=== PATIENT | female | born 1940 | race Caucasian/White ===

== ENCOUNTER 2019-01-25 08:53 | Inpatient (IN) ==
[2019-01-25] MEDS ORDERED: 0.9 % Sodium Chloride 1,000 ML IVC ONE (09:04)
[2019-01-25] MEDS ORDERED: Ipratropium/Albuterol Neb 3 ML IH ONE (09:11)
[2019-01-25] MEDS ORDERED: cefTRIAXone 2,000 MG in Water for inj. (sterile) 20 ML IVP ONE (09:11)
[2019-01-25] MEDS ORDERED: Azithromycin 500 MG in 0.9 % Sodium Chloride 250 ML IVPB ONE (09:11)
[2019-01-25] MEDS ORDERED: methylPREDNISolone 125 MG/2 ML VIAL IVP ONE (09:12)
[2019-01-25 09:41] LABS: Basophils # 0.1 K/mcL (0.0-0.2); Basophils % 0.4 %; Eosinophils # 0.2 K/mcL (0.0-0.6); Eosinophils % 0.8 %; Hematocrit 40.1 % (35.3-44.9); Hemoglobin 13.3 g/dL (11.5-15.4); Immature Granulocytes % 1.3 % (0-4); Lymphocytes # 2.3 K/mcL (0.6-4.6); Lymphocytes % 9.9 %; Mean Corpuscular HGB Conc 33.2 g/dL (31.6-35.5); Mean Corpuscular Hemoglobin 31.5 pg (28.0-33.3); Mean Platelet Volume 9.5 fL (9.4-12.4); Monocytes # 1.7 K/mcL (0.0-1.3); Monocytes % 7.4 %; Neutrophils # 18.7 K/mcL (1.6-8.9); Platelet Count 358 K/mcL (140-400); Red Blood Count 4.22 M/mcL (3.82-4.97); Red Cell Distribution Width 12.4 % (11.5-14.5); Segmented Neutrophils % 80.2 %; White Blood Count 23.3 K/mcL (4.3-11.1)
[2019-01-25 10:02] LABS: BUN/Creatinine Ratio 13 (6-26); Blood Urea Nitrogen 9 mg/dL (8-23); Calcium 10.4 mg/dL (8.6-10.3); Carbon Dioxide 27 mEq/L (23-29); Chloride 91 mEq/L (98-107); Glucose 189 mg/dL (70-105); Osmolality,Calculated 272 (280-300); Potassium 3.3 mEq/L (3.5-5.1); Sodium 129 mEq/L (136-145); Troponin I < 0.03 ng/mL (< 0.04); eGFR For African Americans > 60 (> 60); eGFR For Non-African Americans > 60 (> 60)
[2019-01-25] MEDS ORDERED: Potassium Chloride Elixir 20 MEQ/15 ML UDC PO ONE (10:38)
[2019-01-25 11:25] LABS: VBG HCO3 26 mEq/L (21-27); VBG PCO2 60 mmHg (41-51); VBG PH 7.25 pH Units (7.32-7.42); VBG PO2 45 mmHg (25-50)
[2019-01-25] MEDS ORDERED: Naloxone 0.4 MG/ML INJ IVP PRN (12:06)
[2019-01-25] MEDS ORDERED: Acetaminophen 325 MG TABLET PO PRN (12:06)
[2019-01-25] MEDS ORDERED: Ondansetron 4 MG/2 ML VIAL IVP PRN (12:06)
[2019-01-25] MEDS ORDERED: Albuterol 2.5 MG/3 ML NEBULIZER IH PRN (12:08)
[2019-01-25 12:55] LABS: Magnesium 1.7 mg/dL (1.6-2.6); Potassium 3.7 mEq/L (3.5-5.1)
[2019-01-25 14:56] LABS: Adenovirus Not Detected (Not Detect); Bordetella Pertussis Not Detected (Not Detect); Chlamydophila pneumoniae Not Detected (Not Detect); Coronavirus 229E Not Detected (Not Detect); Coronavirus HKU1 Not Detected (Not Detect); Coronavirus NL63 Not Detected (Not Detect); Coronavirus OC43 Not Detected (Not Detect); Human Metapneumovirus Not Detected (Not Detect); Human Rhinovirus/Enterovirus Not Detected (Not Detect); Influenza A Subtype 2009 H1 Not Detected (Not Detect); Influenza A Untypeable Not Detected (Not Detect); Influenza B Not Detected (Not Detect); Mycoplasma pneumoniae Not Detected (Not Detect); Parainfluenza Virus 1 Not Detected (Not Detect); Parainfluenza Virus 2 Not Detected (Not Detect); Parainfluenza Virus 3 Not Detected (Not Detect); Parainfluenza Virus 4 Not Detected (Not Detect); Respiratory Syncytial Virus Not Detected (Not Detect)
[2019-01-25 15:09] LABS: Bilirubin,Urine Negative (Negative); Blood,Urine Negative (Negative); Clarity,Urine Clear (Clear); Color,Urine Yellow (Yellow); Glucose,Urine (UA) 250 mg/dL (Normal); Ketones,Urine Negative (Negative); Leukocyte Esterase,Urine Trace (Negative); Nitrite,Urine Negative (Negative); PH,Urine 6.5 pH Units (5.0-8.0); Protein,Urine Negative (Neg-Trace); Specific Gravity,Urine 1.008 (1.010-1.025); Urobilinogen,Urine Normal (Normal)
[2019-01-25 15:11] LABS: Bacteria,Urine None Seen per hpf (None-Few); Hyaline Casts,Urine None Seen per lpf (None-Few); RBC,Urine 0-3 per hpf (0-3); Squamous Epithelial Cell,Urine Moderate per lpf (None-Few); WBC,Urine 0-3 per hpf (0-3)
[2019-01-25 15:41] LABS: VBG HCO3 25 mEq/L (21-27); VBG PCO2 46 mmHg (41-51); VBG PH 7.34 pH Units (7.32-7.42); VBG PO2 62 mmHg (25-50)
[2019-01-25] MEDS: Ipratropium/Albuterol Neb 3 ML IH SCH ×2 (15:54→22:26)
[2019-01-25] MEDS: hydrALAZINE 25 MG TABLET PO SCH (17:09)
[2019-01-25] MEDS: methylPREDNISolone 125 MG/2 ML VIAL IVP SCH ×2 (17:09→23:50)
[2019-01-25] MEDS: *HR* Heparin 5,000 UNIT/ML VIAL SQ SCH (17:10)
[2019-01-26 01:35] LABS: Basophils % 0.1 %; Hematocrit 34.7 % (35.3-44.9); Hemoglobin 11.9 g/dL (11.5-15.4); Immature Granulocytes % 1.2 % (0-4); Lymphocytes # 1.2 K/mcL (0.6-4.6); Lymphocytes % 6.8 %; Mean Corpuscular HGB Conc 34.3 g/dL (31.6-35.5); Mean Corpuscular Hemoglobin 31.6 pg (28.0-33.3); Mean Platelet Volume 10.1 fL (9.4-12.4); Monocytes # 0.4 K/mcL (0.0-1.3); Monocytes % 2.2 %; Neutrophils # 15.8 K/mcL (1.6-8.9); Platelet Count 360 K/mcL (140-400); Red Blood Count 3.77 M/mcL (3.82-4.97); Red Cell Distribution Width 12.4 % (11.5-14.5); Segmented Neutrophils % 89.7 %; White Blood Count 17.6 K/mcL (4.3-11.1)
[2019-01-26 01:54] LABS: BUN/Creatinine Ratio 18 (6-26); Blood Urea Nitrogen 12 mg/dL (8-23); Calcium 9.7 mg/dL (8.6-10.3); Carbon Dioxide 24 mEq/L (23-29); Chloride 96 mEq/L (98-107); Glucose 362 mg/dL (70-105); Osmolality,Calculated 284 (280-300); Potassium 3.8 mEq/L (3.5-5.1); Sodium 130 mEq/L (136-145); eGFR For African Americans > 60 (> 60); eGFR For Non-African Americans > 60 (> 60)
[2019-01-26] MEDS: Ipratropium/Albuterol Neb 3 ML IH SCH ×4 (03:57→22:18)
[2019-01-26] MEDS: *HR* Heparin 5,000 UNIT/ML VIAL SQ SCH ×2 (04:35→17:08)
[2019-01-26] MEDS ORDERED: Dextrose Gel 15 GM/37.5 ML TUBE PO PRN ×2 (08:11)
[2019-01-26] MEDS ORDERED: *HR* Dextrose 50 % in Water (Syg) 50 ML SYRINGE IVP PRN (08:11)
[2019-01-26] MEDS ORDERED: D5% in Water 1,000 ML IVC PRN (08:11)
[2019-01-26] MEDS: methylPREDNISolone 125 MG/2 ML VIAL IVP SCH (08:33)
[2019-01-26] MEDS: Azithromycin 500 MG in 0.9 % Sodium Chloride 250 ML IVPB SCH (08:34)
[2019-01-26] MEDS ORDERED: cefTRIAXone 1,000 MG in Water for inj. (sterile) 10 ML IVP SCH (09:00)
[2019-01-26] MEDS ORDERED: Metoprolol XL (24 HR) Succ 50 MG TAB.ER.24H PO SCH (09:00)
[2019-01-26] MEDS: Lisinopril 20 MG TABLET PO SCH ×2 (10:23→21:35)
[2019-01-26 10:33] LABS: Estimated Average Glucose 192 mg/dl
[2019-01-26] MEDS: Insulin LISPRO 300 UNITS/3 ML VIAL SQ SCH ×3 (12:56→20:03)
[2019-01-26] MEDS: MethylPREDNISolone 40 MG/ML VIAL IVP SCH (17:08)
[2019-01-26] MEDS: hydrALAZINE 25 MG TABLET PO SCH (17:08)
[2019-01-27 01:55] LABS: Basophils # 0.1 K/mcL (0.0-0.2); Basophils % 0.4 %; Hematocrit 34.4 % (35.3-44.9); Hemoglobin 11.8 g/dL (11.5-15.4); Immature Platelets 3.3 % (1.1-6.1); Lymphocytes # 1.2 K/mcL (0.6-4.6); Lymphocytes % 6.1 %; Mean Corpuscular HGB Conc 34.3 g/dL (31.6-35.5); Mean Corpuscular Hemoglobin 31.9 pg (28.0-33.3); Mean Platelet Volume 9.9 fL (9.4-12.4); Monocytes % 5.2 %; Platelet Count 333 K/mcL (140-400); Red Cell Distribution Width 12.5 % (11.5-14.5); Segmented Neutrophils % 85.3 %; White Blood Count 19.9 K/mcL (4.3-11.1)
[2019-01-27 02:19] LABS: BUN/Creatinine Ratio 32 (6-26); Blood Urea Nitrogen 24 mg/dL (8-23); Calcium 10.1 mg/dL (8.6-10.3); Carbon Dioxide 26 mEq/L (23-29); Chloride 98 mEq/L (98-107); Glucose 317 mg/dL (70-105); Osmolality,Calculated 292 (280-300); Potassium 3.8 mEq/L (3.5-5.1); Sodium 133 mEq/L (136-145); eGFR For African Americans > 60 (> 60); eGFR For Non-African Americans > 60 (> 60)
[2019-01-27] MEDS: Ipratropium/Albuterol Neb 3 ML IH SCH ×4 (04:11→23:38)
[2019-01-27] MEDS: *HR* Heparin 5,000 UNIT/ML VIAL SQ SCH ×2 (05:16→17:10)
[2019-01-27] MEDS: MethylPREDNISolone 40 MG/ML VIAL IVP SCH (05:53)
[2019-01-27] MEDS: Insulin LISPRO 300 UNITS/3 ML VIAL SQ SCH ×4 (09:00→21:51)
[2019-01-27] MEDS: Lisinopril 20 MG TABLET PO SCH ×2 (11:19→21:51)
[2019-01-27] MEDS: Metoprolol XL (24 HR) Succ 50 MG TAB.ER.24H PO SCH (11:20)
[2019-01-27] MEDS: Azithromycin 500 MG in 0.9 % Sodium Chloride 250 ML IVPB SCH (11:21)
[2019-01-27] MEDS: hydrALAZINE 25 MG TABLET PO SCH (17:10)
[2019-01-27] MEDS ORDERED: Insulin DETEMIR 100 UNIT/ML X5UNITS SQ SCH (21:00)
[2019-01-28 01:35] LABS: Hematocrit 41.5 % (35.3-44.9); Mean Corpuscular HGB Conc 32.8 g/dL (31.6-35.5); Mean Corpuscular Hemoglobin 31.1 pg (28.0-33.3); Mean Platelet Volume 9.4 fL (9.4-12.4); Platelet Count 411 K/mcL (140-400); Red Blood Count 4.37 M/mcL (3.82-4.97); Red Cell Distribution Width 12.5 % (11.5-14.5); White Blood Count 21.3 K/mcL (4.3-11.1)
[2019-01-28 01:38] LABS: Hemoglobin 13.6 g/dL (11.5-15.4)
[2019-01-28 01:54] LABS: BUN/Creatinine Ratio 31 (6-26); Blood Urea Nitrogen 28 mg/dL (8-23); Calcium 10.7 mg/dL (8.6-10.3); Carbon Dioxide 25 mEq/L (23-29); Chloride 99 mEq/L (98-107); Glucose 85 mg/dL (70-105); Osmolality,Calculated 285 (280-300); Potassium 3.6 mEq/L (3.5-5.1); Sodium 135 mEq/L (136-145); eGFR For African Americans > 60 (> 60); eGFR For Non-African Americans > 60 (> 60)
[2019-01-28 02:13] LABS: Lymphocytes # 3.8 K/mcL (0.6-4.6); Monocytes # 0.4 K/mcL (0.0-1.3)
[2019-01-28 02:14] LABS: Platelet Estimate Normal (Normal)
[2019-01-28] MEDS: Ipratropium/Albuterol Neb 3 ML IH SCH ×2 (03:53→09:59)
[2019-01-28] MEDS: *HR* Heparin 5,000 UNIT/ML VIAL SQ SCH (04:23)
[2019-01-28] MEDS: Insulin LISPRO 300 UNITS/3 ML VIAL SQ SCH ×2 (08:00→11:22)
[2019-01-28] MEDS: Azithromycin 500 MG in 0.9 % Sodium Chloride 250 ML IVPB SCH (08:14)
[2019-01-28] MEDS: Metoprolol XL (24 HR) Succ 50 MG TAB.ER.24H PO SCH (08:14)
[2019-01-28] MEDS: Lisinopril 20 MG TABLET PO SCH (08:14)
[2019-01-28] MEDS ORDERED: predniSONE 20 MG TABLET PO SCH (09:00)
[2019-01-28] MEDS ORDERED: hydrALAZINE 25 MG TABLET PO SCH (09:00)
[2019-01-28 14:32] VITALS: BP 151/81
[2019-01-29] MEDS ORDERED: Azithromycin 250 MG TABLET PO SCH (08:30)
== END 2019-01-28 15:29 | disposition home health service (06) | DRG 190 ==
LOC: EMEROOARM 08:53 → 3BNU 08:53
PROVIDERS: ADMIT Internal Medicine; ATTEND Internal Medicine

== ENCOUNTER 2021-06-10 22:27 | Inpatient (IN) ==
[2021-06-10] MEDS ORDERED: 0.9 % Sodium Chloride 1,000 ML IVC ONE (22:54)
[2021-06-10] MEDS ORDERED: cefTRIAXone 1,000 MG in 0.9 % Sodium Chloride Mini Bag 100 ML IVPB ONE (22:56)
[2021-06-10] MEDS ORDERED: Isovue-370 500 ML BOTTLE IVP ONE (22:57)
[2021-06-10 23:09] LABS: Basophils % 0.1 %
[2021-06-10 23:11] LABS: Hematocrit 52.5 % (35.3-44.9); Hemoglobin 16.4 g/dL (11.5-15.4); Immature Granulocytes % 3.4 % (0-4); Lymphocytes % 6.6 %; Mean Corpuscular HGB Conc 31.2 g/dL (31.6-35.5); Mean Corpuscular Hemoglobin 29.9 pg (28.0-33.3); Mean Corpuscular Volume 95.6 fL (83.0-100.0); Mean Platelet Volume 11.8 fL (9.4-12.4); Monocytes # 1.3 K/mcL (0.0-1.3); Monocytes % 4.1 %; Neutrophils # 26.5 K/mcL (1.6-8.9); Nucleated Red Blood Cells 0.1 /100 WBC (0); Platelet Count 374 K/mcL (140-400); Red Blood Count 5.49 M/mcL (3.82-4.97); Red Cell Distribution Width 13.8 % (11.5-14.5); Segmented Neutrophils % 85.8 %
[2021-06-10 23:16] LABS: INR 1.3; Prothrombin Time 14.5 Seconds (9.4-12.1)
[2021-06-10 23:19] LABS: Activated Partial Thrombo Time 24.1 Seconds (26.0-36.0)
[2021-06-10 23:27] LABS: White Blood Count 30.9 K/mcL (4.3-11.1)
[2021-06-10 23:33] LABS: Albumin 3.2 g/dL (3.5-5.7); Albumin/Globulin Ratio 0.7 (1.1-2.2); Bilirubin,Direct 0.1 mg/dL (0.0-0.2); Bilirubin,Indirect 0.4 mg/dL (0.0-1.0); Bilirubin,Total 0.5 mg/dL (0.3-1.0); Calcium 10.9 mg/dL (8.6-10.3); Globulin 4.6 g/dL (2.4-3.5); Magnesium 3.3 mg/dL (1.6-2.6); Phosphorous 7.4 mg/dL (2.7-4.5); Total Protein 7.8 g/dL (6.4-8.9); Troponin I 0.06 ng/mL (< 0.04)
[2021-06-10 23:36] LABS: Large Platelets Present (Not Present)
[2021-06-10 23:37] LABS: Reactive Lymphocytes Present (Not Present); Toxic Granulation Present (Not Present)
[2021-06-10 23:38] LABS: Smudge Cells Present (Not Present)
[2021-06-10] MEDS ORDERED: 0.9 % Sodium Chloride 1,000 ML IV ONE (23:54)
[2021-06-11 00:08] LABS: VBG HCO3 19 mEq/L (21-27); VBG PCO2 40 mmHg (41-51); VBG PH 7.29 pH Units (7.32-7.42); VBG PO2 40 mmHg (25-50)
[2021-06-11 01:02] LABS: Adenovirus Not Detected (Not Detect); Coronavirus 229E Not Detected (Not Detect); Coronavirus HKU1 Not Detected (Not Detect); Coronavirus NL63 Not Detected (Not Detect); Coronavirus OC43 Not Detected (Not Detect); Human Metapneumovirus Not Detected (Not Detect); Human Rhinovirus/Enterovirus Not Detected (Not Detect); Influenza A Subtype 2009 H1 Not Detected (Not Detect); Influenza B Not Detected (Not Detect); Parainfluenza Virus 1 Not Detected (Not Detect); Parainfluenza Virus 2 Not Detected (Not Detect); Parainfluenza Virus 3 Not Detected (Not Detect); SARS-CoV-2 Not Detected (Not Detect)
[2021-06-11 01:03] LABS: Bordetella Pertussis Not Detected (Not Detect); Chlamydophila pneumoniae Not Detected (Not Detect); Mycoplasma pneumoniae Not Detected (Not Detect); Parainfluenza Virus 4 Not Detected (Not Detect); Respiratory Syncytial Virus Not Detected (Not Detect)
[2021-06-11 01:29] LABS: Bilirubin,Urine Negative (Negative); Blood,Urine Large (Negative); Clarity,Urine Turbid (Clear); Color,Urine Yellow (Yellow); Glucose,Urine (UA) >=1000 mg/dL (Normal); Hyaline Casts,Urine Many per lpf (None Seen); Ketones,Urine Negative (Negative); Leukocyte Esterase,Urine Negative (Negative); Mucus,Urine Moderate per lpf (None-Few); Nitrite,Urine Negative (Negative); PH,Urine 5.5 pH Units (5.0-8.0); Protein,Urine 50 mg/dL (Neg-Trace); RBC,Urine 0-3 per hpf (0-3); Specific Gravity,Urine 1.018 (1.010-1.025); Squamous Epithelial Cell,Urine Few per hpf (None-Few); Urobilinogen,Urine Normal (Normal)
[2021-06-11] MEDS ORDERED: 0.9 % Sodium Chloride 1,000 ML IV ONE (01:31)
[2021-06-11] MEDS ORDERED: MetroNIDAZOLE 500 MG/100 ML 500 MG/100 ML BAG IVPB ONE (01:34)
[2021-06-11 02:44] LABS: Calcium 9.2 mg/dL (8.6-10.3); Potassium 4.6 mEq/L (3.5-5.1)
[2021-06-11] MEDS ORDERED: Insulin Regular, Human 100 UNIT/ML IV ONE (03:43)
[2021-06-11] MEDS ORDERED: Insulin LISPRO 300 UNITS/3 ML VIAL SUBQ PRN ×3 (03:43→03:59)
[2021-06-11] MEDS ORDERED: D5% in 0.45% NACL 1,000 ML IVC PRN (03:59)
[2021-06-11] MEDS ORDERED: *HR* Dextrose 50 % in Water (Syg) 50 ML SYRINGE IVP PRN (03:59)
[2021-06-11] MEDS ORDERED: D5% in 0.45% NACL w KCl 20 MEQ/1,000 ML MLS IVC PRN (03:59)
[2021-06-11] MEDS: 0.9 % Sodium Chloride 1,000 ML IVC SCH ×12 (04:19→23:13)
[2021-06-11] MEDS: 0.45 % Sodium Chloride w/KCl 20 MEQ/1,000 ML MLS IVC SCH ×12 (04:20→23:27)
[2021-06-11] MEDS: 0.9 % Sodium Chloride w KCl 20 MEQ/1,000 ML MLS IVC SCH ×12 (04:20→23:27)
[2021-06-11 06:02] LABS: VBG HCO3 17 mEq/L (21-27); VBG PCO2 40 mmHg (41-51); VBG PH 7.23 pH Units (7.32-7.42); VBG PO2 59 mmHg (25-50)
[2021-06-11 06:26] LABS: BUN/Creatinine Ratio 28 (6-26); Blood Urea Nitrogen 75 mg/dL (8-23); Calcium 8.7 mg/dL (8.6-10.3); Carbon Dioxide 20 mEq/L (23-29); Chloride 117 mEq/L (98-107); Glucose 406 mg/dL (70-105); Osmolality,Calculated 341 (280-300); Potassium 3.8 mEq/L (3.5-5.1); Salicylate < 2.5 mg/dL (15.0-30.0); Sodium 146 mEq/L (136-145); eGFR For African Americans 21 (> 60); eGFR For Non-African Americans 17 (> 60)
[2021-06-11 09:20] LABS: Estimated Average Glucose 243 mg/dl; Hemoglobin A1C 10.1 %
[2021-06-11 10:27] LABS: Eosinophils % 0.3 %; Lymphocytes % 6.9 %; Nucleated Red Blood Cells 0.1 /100 WBC (0); Red Cell Distribution Width 13.6 % (11.5-14.5)
[2021-06-11 10:29] LABS: Basophils # 0.2 K/mcL (0.0-0.2); Basophils % 0.5 %; Eosinophils # 0.1 K/mcL (0.0-0.6); Hematocrit 44.7 % (35.3-44.9); Immature Granulocytes % 3.2 % (0-4); Mean Corpuscular HGB Conc 31.3 g/dL (31.6-35.5); Mean Corpuscular Hemoglobin 30.3 pg (28.0-33.3); Mean Corpuscular Volume 96.8 fL (83.0-100.0); Mean Platelet Volume 11.2 fL (9.4-12.4); Monocytes # 0.8 K/mcL (0.0-1.3); Monocytes % 1.9 %; Neutrophils # 37.3 K/mcL (1.6-8.9); Platelet Count 260 K/mcL (140-400); Red Blood Count 4.62 M/mcL (3.82-4.97); Segmented Neutrophils % 87.2 %
[2021-06-11] MEDS ORDERED: Aspirin Enteric Coated 81 MG Tablet PO SCH (10:30)
[2021-06-11] MEDS ORDERED: lisinopriL 20 MG TABLET PO SCH (10:30)
[2021-06-11] MEDS ORDERED: hydrALAZINE 25 MG TABLET PO SCH ×2 (10:30→21:00)
[2021-06-11] MEDS ORDERED: Metoprolol XL (24 HR) Succ 50 MG TAB.ER.24H PO SCH (10:30)
[2021-06-11 10:38] LABS: White Blood Count 42.8 K/mcL (4.3-11.1)
[2021-06-11 10:57] LABS: Troponin I 0.05 ng/mL (< 0.04)
[2021-06-11] MEDS ORDERED: Azithromycin 500 MG in 0.9 % Sodium Chloride 250 ML IVPB SCH (11:00)
[2021-06-11] MEDS ORDERED: Potassium Chloride Elixir 20 MEQ/15 ML UDC PO SCH (11:00)
[2021-06-11 11:11] LABS: Calcium 8.7 mg/dL (8.6-10.3)
[2021-06-11] MEDS ORDERED: Aspirin 81 MG TAB.CHEW PO SCH (11:15)
[2021-06-11 11:21] LABS: Platelet Estimate Normal (Normal)
[2021-06-11] MEDS: *HR* Dextrose 50 % in Water (Syg) 50 ML SYRINGE IVP PRN ×5 (12:51→20:54)
[2021-06-11] MEDS ORDERED: Sodium Bicarbonate 150 MEQ in D5% in Water 1,000 ML IVC SCH ×2 (13:15→20:45)
[2021-06-11 15:15] LABS: Calcium 7.9 mg/dL (8.6-10.3)
[2021-06-11] MEDS ORDERED: cefTRIAXone 1,000 MG in 0.9 % Sodium Chloride 10 ML IVP SCH (18:00)
[2021-06-11 19:06] LABS: Calcium 8.1 mg/dL (8.6-10.3); Potassium 4.4 mEq/L (3.5-5.1)
[2021-06-11 22:14] LABS: VBG HCO3 22 mEq/L (21-27); VBG PCO2 48 mmHg (41-51); VBG PH 7.26 pH Units (7.32-7.42); VBG PO2 48 mmHg (25-50)
[2021-06-11 22:28] LABS: Calcium 8.1 mg/dL (8.6-10.3); Potassium 4.4 mEq/L (3.5-5.1)
[2021-06-12] MEDS ORDERED: Morphine Sulfate 2 MG/ML SYRINGE IVP PRN (00:15)
[2021-06-12 00:50] LABS: ABG Base Excess -7 mEq/L (-2 to 3); ABG HCO3 16 mEq/L (21-27); ABG Oxygen Saturation 97 % (95-98); ABG PCO2 24 mmHg (35-45); ABG PH 7.43 pH Units (7.32-7.45); ABG PO2 86 mmHg (85-104); ABG TCO2 16 mEq/L (20-26)
[2021-06-12] MEDS: D5% in Water 1,000 ML IVC SCH ×2 (01:39→11:15)
[2021-06-12 01:47] LABS: Adenovirus F 40/41 PCR Not detected (Not detect); Astrovirus PCR Not detected (Not detect); C.difficile Toxin A/B Gene PCR Not detected (Not detect); Campylobacter by PCR Not detected (Not detect); Cryptosporidium by PCR Not detected (Not detect); Cyclospora cayetanensis PCR Not detected (Not detect); E. coli O157 by PCR Not detected (Not detect); Entamoeba histolytica PCR Not detected (Not detect); Enteroaggregative E.coli(EAEC) Not detected (Not detect); Enteropathogenic E.coli(EPEC) Not detected (Not detect); Enterotoxigenic E.coli (ETEC) Not detected (Not detect); Giardia lamblia PCR Not detected (Not detect); Norovirus GI/GII PCR Not detected (Not detect); Plesiomonas shigelloides PCR Not detected (Not detect); Rotavirus A PCR Not detected (Not detect); Salmonella PCR Not detected (Not detect); Sapovirus PCR Not detected (Not detect); Shig/EnteroinvasiveE coli EIEC Not detected (Not detect); Shigalike tox-prod E coli STEC Not detected (Not detect); Vibrio PCR Not detected (Not detect); Vibrio cholerae PCR Not detected (Not detect); Yersinia enterocolitica PCR Not detected (Not detect)
[2021-06-12 03:55] LABS: Basophils % 0.3 %; Eosinophils % 0.1 %; Immature Granulocytes % 4.1 % (0-4); Monocytes % 2.3 %; Nucleated Red Blood Cells 0.1 /100 WBC (0); Platelet Count 164 K/mcL (140-400)
[2021-06-12 03:57] LABS: Hematocrit 39.7 % (35.3-44.9); Hemoglobin 11.8 g/dL (11.5-15.4); Lymphocytes # 1.1 K/mcL (0.6-4.6); Lymphocytes % 2.6 %; Mean Corpuscular HGB Conc 29.7 g/dL (31.6-35.5); Mean Corpuscular Hemoglobin 29.4 pg (28.0-33.3); Mean Platelet Volume 11.9 fL (9.4-12.4); Neutrophils # 39.3 K/mcL (1.6-8.9); Red Blood Count 4.01 M/mcL (3.82-4.97); Red Cell Distribution Width 13.5 % (11.5-14.5); Segmented Neutrophils % 90.6 %
[2021-06-12 04:00] LABS: Basophils # 0.1 K/mcL (0.0-0.2); White Blood Count 43.4 K/mcL (4.3-11.1)
[2021-06-12 04:13] LABS: Albumin 2.1 g/dL (3.5-5.7); Albumin/Globulin Ratio 0.8 (1.1-2.2); Bilirubin,Total 0.4 mg/dL (0.3-1.0); Calcium 8.2 mg/dL (8.6-10.3); Globulin 2.7 g/dL (2.4-3.5); Magnesium 1.7 mg/dL (1.6-2.6); Phosphorous 3.4 mg/dL (2.7-4.5); Potassium 4.4 mEq/L (3.5-5.1); Total Protein 4.8 g/dL (6.4-8.9)
[2021-06-12] MEDS ORDERED: Dextrose 4 GM Chewable Tablets PO PRN ×2 (08:01)
[2021-06-12] MEDS ORDERED: Azithromycin 500 MG in D5% in Water 250 ML IVPB SCH (09:00)
[2021-06-12] MEDS ORDERED: cefTRIAXone 1,000 MG in 0.9 % Sodium Chloride 10 ML IVP SCH (09:00)
[2021-06-12] MEDS ORDERED: cefTRIAXone 1,000 MG in 0.9 % Sodium Chloride 10 ML IVP ONE (09:00)
[2021-06-12] MEDS: Insulin LISPRO 300 UNITS/3 ML VIAL SUBQ SCH ×5 (09:42→23:34)
[2021-06-12] MEDS ORDERED: Insulin DETEMIR 100 UNIT/ML X5UNITS SUBQ ONE (16:00)
[2021-06-12 17:05] LABS: VBG Ionized Calcium 1.26 mmol/L (1.15-1.35)
[2021-06-12 17:19] LABS: Calcium 8.4 mg/dL (8.6-10.3); Magnesium 1.8 mg/dL (1.6-2.6); Potassium 4.2 mEq/L (3.5-5.1)
[2021-06-12 18:27] LABS: Protein/Creatinine Ratio,Urine 1.37 mg/mg (0.00-0.20)
[2021-06-12] MEDS: *HR* Dextrose 50 % in Water (Syg) 50 ML SYRINGE IVP PRN ×2 (19:27→21:13)
[2021-06-12] MEDS: Pantoprazole 40 MG VIAL IVP SCH (19:29)
[2021-06-12] MEDS: *HR* Heparin 5,000 UNIT/ML VIAL SQ SCH (19:29)
[2021-06-12] MEDS ORDERED: Albumin 25% 12.5gm/50mL 12.5 GM/50 ML IV.SOLN IVPB ONE (20:33)
[2021-06-12] MEDS ORDERED: D5% in 0.45% NACL 1,000 ML IVC SCH (21:15)
[2021-06-13] MEDS ORDERED: Piperacillin/Tazobactam 3.375 GM in 0.9 % Sodium Chloride Mini Bag 100 ML IVPB SCH
[2021-06-13 01:05] LABS: Basophils % 0.2 %; Lymphocytes % 3.7 %; Mean Platelet Volume 11.5 fL (9.4-12.4); Red Cell Distribution Width 13.7 % (11.5-14.5)
[2021-06-13 01:06] LABS: Basophils # 0.1 K/mcL (0.0-0.2); Eosinophils # 0.5 K/mcL (0.0-0.6); Eosinophils % 1.2 %; Hematocrit 33.4 % (35.3-44.9); Hemoglobin 10.5 g/dL (11.5-15.4); Immature Granulocytes % 4.4 % (0-4); Lymphocytes # 1.5 K/mcL (0.6-4.6); Mean Corpuscular HGB Conc 31.4 g/dL (31.6-35.5); Mean Corpuscular Hemoglobin 30.3 pg (28.0-33.3); Mean Corpuscular Volume 96.5 fL (83.0-100.0); Monocytes # 0.9 K/mcL (0.0-1.3); Monocytes % 2.2 %; Nucleated Red Blood Cells 0.3 /100 WBC (0); Platelet Count 149 K/mcL (140-400); Red Blood Count 3.46 M/mcL (3.82-4.97); Segmented Neutrophils % 88.3 %
[2021-06-13 01:07] LABS: VBG Ionized Calcium 1.27 mmol/L (1.15-1.35)
[2021-06-13 01:08] LABS: White Blood Count 40.8 K/mcL (4.3-11.1)
[2021-06-13] MEDS ORDERED: *HR* Metoprolol 5 MG/5 ML VIAL IVP ONE (02:25)
[2021-06-13] MEDS: Insulin LISPRO 300 UNITS/3 ML VIAL SUBQ SCH (02:39)
[2021-06-13] MEDS: *HR* Dextrose 50 % in Water (Syg) 50 ML SYRINGE IVP PRN (02:53)
[2021-06-13 03:12] LABS: Albumin 2.5 g/dL (3.5-5.7); Bilirubin,Direct 0.2 mg/dL (0.0-0.2); Bilirubin,Indirect 0.2 mg/dL (0.0-1.0); Bilirubin,Total 0.4 mg/dL (0.3-1.0); Calcium 8.4 mg/dL (8.6-10.3); Globulin 2.6 g/dL (2.4-3.5); Magnesium 1.7 mg/dL (1.6-2.6); Phosphorous 4.3 mg/dL (2.7-4.5); Potassium 4.1 mEq/L (3.5-5.1); Total Protein 5.1 g/dL (6.4-8.9)
[2021-06-13 04:32] VITALS: TEMP 98.9
[2021-06-13] MEDS: Pantoprazole 40 MG VIAL IVP SCH (05:44)
[2021-06-13] MEDS: *HR* Heparin 5,000 UNIT/ML VIAL SQ SCH (05:44)
[2021-06-13] MEDS ORDERED: *HR* LORazepam 2 MG/ML VIAL IVP PRN (07:29)
[2021-06-13] MEDS ORDERED: Morphine Sulfate 2 MG/ML SYRINGE IVP PRN (07:29)
[2021-06-13] MEDS ORDERED: Ipratropium/Albuterol Neb 3 ML IH PRN (07:31)
[2021-06-13 07:59] VITALS: BP 62/39
[2021-06-13 08:14] VITALS: PULSE 138; O2SAT 92
[2021-06-13] MEDS ORDERED: Insulin DETEMIR 100 UNIT/ML X5UNITS SUBQ SCH (09:00)
[2021-06-14 20:14] LABS: Amphetamines NEGATIVE ng/mL (Cutoff 20); Barbiturates NEGATIVE ng/mL (Cutoff 50); Benzodiazepines NEGATIVE ng/mL (Cutoff 50); Buprenorphine NEGATIVE ng/mL (Cutoff 1); Cocaine NEGATIVE ng/mL (Cutoff 20); Methadone NEGATIVE ng/mL (Cutoff 25); Methamphetamines NEGATIVE ng/mL (Cutoff 20); Opiates NEGATIVE ng/mL (Cutoff 20); Phencyclidine NEGATIVE ng/mL (Cutoff 10)
== END 2021-06-13 10:29 | disposition expired | DRG 871 ==
LOC: 2NNU 22:27 → EMEROOARM 22:27 → SUATTDRO 06-11 02:19 → 2NNU 06-11 02:22 → ICNU 06-11 23:24
PROVIDERS: ADMIT Family Medicine; ATTEND Internal Medicine